=== PATIENT | male | born 1970 | race African-American/Black ===

== ENCOUNTER 2018-11-08 01:52 | Inpatient (IN) | payer MEDICAID, OTHER ==
[~2018-11-08] VITALS: Ht 190.5 cm; Wt 86.6 kg
[2018-11-08] MEDS ORDERED: HYDROCODONE/ACETAMINOPHEN 5/325MG TABLET PO STA (02:49)
[2018-11-08 03:06] LABS: BASOPHILS % 0.7 % (0.0-2.0); HEMATOCRIT. 43.7 % (42.0-52.0); HEMOGLOBIN. 14.9 g/dL (14.0-18.0); LYMPHOCYTES % 22.5 % (20.0-50.0); MEAN CORPUSCULAR HEMOGLOBIN 34.4 pg (28.0-32.0); MEAN CORPUSCULAR VOLUME 100.7 fL (80.0-94.0); MEAN PLATELET VOLUME 8.1 fl (7.4-10.4); MONOCYTES % 11.6 % (2.0-8.0); NEUTROPHILS % 63.2 % (40.0-76.0); PLATELET 152 x1000/uL (130-400); RED BLOOD CELL COUNT 4.34 mill/uL (4.7-6.1); RED CELL DISTRIBUTION WIDTH 12.7 % (11.6-14.6)
[2018-11-08 03:12] LABS: CHLORIDE 108 mEq/L (98-107)
[2018-11-08] MEDS ORDERED: ENOXAPARIN 80MG/0.8ML SYR SUBCUT ONE (03:45)
[2018-11-08 08:30] VITALS: BP 107/63
[2018-11-08] MEDS ORDERED: ACETAMINOPHEN 650MG/20.3ML UDC GT PRN (08:30)
[2018-11-08] MEDS ORDERED: HYDROCODONE/ACETAMINOPHEN 5/325MG TABLET PO PRN (08:30)
[2018-11-08] MEDS ORDERED: ACETAMINOPHEN 650MG SUPP PR PRN (08:30)
[2018-11-08] MEDS ORDERED: IPRATROPIUM/ALBUTEROL 0.5-3(2.5)MG/3ML NEB INH PRN (08:30)
[2018-11-08] MEDS ORDERED: ACETAMINOPHEN 325MG TABLET PO PRN (08:30)
[2018-11-08] MEDS ORDERED: DIPHENHYDRAMINE 50MG/ML VIAL IV PRN (08:30)
[2018-11-08] MEDS ORDERED: MAGNESIUM/ALUMINUM HYDROXIDE/SIMETHICONE 30ML UDC PO PRN (08:30)
[2018-11-08] MEDS ORDERED: CLONIDINE 0.1MG TABLET PO PRN (08:30)
[2018-11-08] MEDS ORDERED: NA PHOS,M-B/NA PHOS,DI-BA ENEMA 118ML PR PRN (08:30)
[2018-11-08] MEDS ORDERED: ONDANSETRON HCL 4MG/2ML INJ IV PRN (08:30)
[2018-11-08 09:00] VITALS: BP 107/63
[2018-11-08 12:00] VITALS: BP 106/54
[2018-11-08] MEDS ORDERED: MORPHINE SULFATE 4 MG/ML CPJ (NOT FOR IM USE) IV PRN (12:00)
[2018-11-08] MEDS: SODIUM CHLORIDE 0.9% INJ 3ML FLUSH IVF SCH ×2 (14:00→21:48)
[2018-11-08 16:29] VITALS: BP 106/68
[2018-11-08 16:36] LABS: BG CARBOXYHEMOGLOBIN 1.4 % (0.5-1.5); BG DEOXYHEMOGLOBIN 3.2 % (0.0-5.0); BG FRACTION INSPIRED OXYGEN 21; BG METHEMOGLOBIN 0.4 % (0.0-1.5); BG OXYGEN SATURATION 96.7 % (92.0-98.5); BG PCO2 43.3 mmHg (35.0-45.0); BG PH 7.412 (7.350-7.450); BG PO2 87.5 mmHg (75.0-100.0); BG SAMPLE SITE RIGHT BRACHIAL; BG VENT MODE ROOM AIR
[2018-11-08 18:24] LABS: CREATINE KINASE 270 IU/L (39-308)
[2018-11-08] MEDS: RIVAROXABAN 15 MG TABLET PO SCH (18:26)
[2018-11-08 18:27] LABS: CREATINE KINASE MB FRACTION 1.3 ng/mL (0.5-3.6)
[2018-11-08 18:31] LABS: CLARITY URINE CLEAR (CLEAR); COLOR URINE YELLOW (YELLOW); KETONES URINE TRACE (NEGATIVE); LEUKOCYTE ESTERASE URINE NEGATIVE (NEGATIVE); NITRITE URINE NEGATIVE (NEGATIVE); OCCULT BLOOD URINE NEGATIVE (NEGATIVE); PH URINE 6.5 (4.5-8.0); PROTEIN URINE NEGATIVE (NEGATIVE); SPECIFIC GRAVITY URINE 1.017 (1.005-1.030)
[2018-11-08 18:41] LABS: HEPATITIS B SURFACE ANTIGEN NEGATIVE
[2018-11-08 18:55] LABS: *AMPHETAMINES SCREEN URINE NEGATIVE (NEGATIVE); *BARBITURATES SCREEN URINE NEGATIVE (NEGATIVE); *BENZODIAZEPINES SCREEN URINE NEGATIVE (NEGATIVE); *COCAINE SCREEN URINE PRESUMTIVE POSITIVE (NEGATIVE); METHADONE URINE SCREEN NEGATIVE (NEGATIVE); OPIATES URINE SCREEN PRESUMTIVE POSITIVE (NEGATIVE)
[2018-11-08 18:56] LABS: CANNABINOID URINE SCREEN PRESUMTIVE POSITIVE (NEGATIVE); PHENCYCLIDINE URINE SCREEN NEGATIVE (NEGATIVE)
[2018-11-08 19:11] LABS: HEPATITIS A AB IGM NEGATIVE (NEGATIVE)
[2018-11-08 20:00] VITALS: BP 107/60
[2018-11-08] MEDS: IPRATROPIUM/ALBUTEROL 0.5-3(2.5)MG/3ML NEB HHN SCH (21:15)
[2018-11-09] VITALS: BP 110/60
[2018-11-09] MEDS: IPRATROPIUM/ALBUTEROL 0.5-3(2.5)MG/3ML NEB HHN SCH ×5 (00:37→14:54)
[2018-11-09 02:15] LABS: CREATINE KINASE 237 IU/L (39-308)
[2018-11-09 02:16] LABS: CREATINE KINASE MB FRACTION 1.2 ng/mL (0.5-3.6)
[2018-11-09 04:00] VITALS: BP 125/76
[2018-11-09 08:00] VITALS: BP 116/68
[2018-11-09] MEDS ORDERED: IOHEXOL-350 100 ML BOTTLE ONE (09:16)
[2018-11-09 10:13] LABS: BASOPHILS % 0.4 % (0.0-2.0); EOSINOPHILS % 2.1 % (0.0-5.0); HEMATOCRIT. 44.4 % (42.0-52.0); LYMPHOCYTES % 13.7 % (20.0-50.0); MEAN CORPUSCULAR HEMOGLOBIN 34.3 pg (28.0-32.0); MEAN CORPUSCULAR VOLUME 101.5 fL (80.0-94.0); MEAN PLATELET VOLUME 8.4 fl (7.4-10.4); MONOCYTES % 9.1 % (2.0-8.0); NEUTROPHILS % 74.7 % (40.0-76.0); PLATELET 163 x1000/uL (130-400); RED BLOOD CELL COUNT 4.38 mill/uL (4.7-6.1); RED CELL DISTRIBUTION WIDTH 12.7 % (11.6-14.6)
[2018-11-09 10:26] LABS: CHLORIDE 106 mEq/L (98-107)
[2018-11-09 10:33] LABS: LDL CHOLESTEROL 75 mg/dL (5-100)
[2018-11-09 10:35] LABS: HDL CHOLESTEROL 69 mg/dL (40-59)
[2018-11-09] MEDS: RIVAROXABAN 15 MG TABLET PO SCH (10:39)
[2018-11-09 12:00] VITALS: BP 119/70
[2018-11-09] MEDS ORDERED: RIVA20TA PO (13:53)
[2018-11-09] MEDS ORDERED: XAR15 PO (13:53)
[2018-11-09] MEDS ORDERED: AZIT500T2 MT (13:54)
[2018-11-09] MEDS: SODIUM CHLORIDE 0.9% INJ 3ML FLUSH IVF SCH ×2 (13:57→14:00)
[2018-11-09] MEDS ORDERED: GUAIFENESIN/CODEINE 200-20MG/10ML UDC PO SCH (14:00)
[2018-11-09] MEDS ORDERED: AZITHROMYCIN 500 MG in DEXT 5% WATER 250 ML IV SCH (14:00)
[2018-11-09 16:08] VITALS: BP 119/70
[2018-11-29] MEDS ORDERED: RIVAROXABAN 20 MG TABLET PO SCH (17:00)
== END 2018-11-09 16:45 | disposition home or self-care (01) | DRG 139 ==
LOC: ER 01:52 → 5WST 05:19 → EDBEDREQ 05:21 → EDBEDREQTM 05:21 → ENRESERV 06:46
PROVIDERS: ADMIT Family Medicine; ATTEND Family Medicine
DX: J18.9 Pneumonia, unspecified organism (principal); I82.412 Acute embolism and thrombosis of left femoral vein; J44.0 Chronic obstructive pulmonary disease with (acute) lower respiratory infection; R16.0 Hepatomegaly, not elsewhere classified; J44.1 Chronic obstructive pulmonary disease with (acute) exacerbation; I82.432 Acute embolism and thrombosis of left popliteal vein; F17.210 Nicotine dependence, cigarettes, uncomplicated; F12.90 Cannabis use, unspecified, uncomplicated; R10.9 Unspecified abdominal pain; E80.6 Other disorders of bilirubin metabolism; M19.90 Unspecified osteoarthritis, unspecified site; Z86.718 Personal history of other venous thrombosis and embolism; Z82.49 Family history of ischemic heart disease and other diseases of the circulatory system
CPT/HCPCS: 36415; 36600; 71045; 71275; 74177; 76705; 80061; 80305; 82375; 82550; 82553; 82805; 84484; 86705; 86709; 86803; 87340; 93005; 93971; 94640; 96372; 96374; 99285; J0456; J1650; J2405; J7050; J7060; J7620; Q9967

== ENCOUNTER 2018-11-11 00:41 | Emergency (ER) | payer MEDICAID ==
[~2018-11-11 00:41] MED LIST: AZIT500T2 MT; RIVA20TA PO; XAR15 PO
[2018-12-02] MEDS ORDERED: AZIT500T2 MT (12:25)
[2018-12-02] MEDS ORDERED: XAR15 MT (12:25)
== END 2018-11-11 00:57 | disposition left against medical advice (07) ==
LOC: ER 00:41
DX: Z53.21 Procedure and treatment not carried out due to patient leaving prior to being seen by health care provider (principal)

== ENCOUNTER 2018-11-17 22:26 | Emergency (ER) | payer MEDICAID ==
[~2018-11-17] VITALS: Ht 193 cm; Wt 86.0 kg
[2018-11-18] MEDS ORDERED: LIDOCAINE HCL 1% 20ML VIAL (Pyxis) INJ INFIL ONE (06:45)
[2018-11-18 08:00] VITALS: BP 149/79
[2018-12-02] MEDS ORDERED: AZIT500T2 MT (12:25)
[2018-12-02] MEDS ORDERED: XAR15 MT (12:25)
== END 2018-11-18 08:57 | disposition home or self-care (01) ==
LOC: ER 22:26
DX: K64.4 Residual hemorrhoidal skin tags (principal); S63.616A Unspecified sprain of right little finger, initial encounter; Z86.718 Personal history of other venous thrombosis and embolism; Z79.01 Long term (current) use of anticoagulants; F17.200 Nicotine dependence, unspecified, uncomplicated; Z98.890 Other specified postprocedural states; X58.XXXA Exposure to other specified factors, initial encounter; Y93.67 Activity, basketball; Y92.89 Other specified places as the place of occurrence of the external cause
CPT/HCPCS: 26770; 73130; 99284; J3490

== ENCOUNTER 2018-12-01 01:06 | Inpatient (IN) | payer MEDICAID ==
[~2018-12-01] VITALS: Ht 193 cm; Wt 78.5 kg
[2018-12-01 05:29] LABS: CHLORIDE 107 mEq/L (98-107)
[2018-12-01] MEDS ORDERED: ENOXAPARIN 80MG/0.8ML SYR SUBCUT ONE (05:45)
[2018-12-01 06:08] LABS: BASOPHILS % 0.7 % (0.0-2.0); EOSINOPHILS % 0.7 % (0.0-5.0); HEMATOCRIT. 39.4 % (42.0-52.0); HEMOGLOBIN. 13.5 g/dL (14.0-18.0); LYMPHOCYTES % 28.3 % (20.0-50.0); MEAN CORPUSCULAR HEMOGLOBIN 34.1 pg (28.0-32.0); MEAN CORPUSCULAR VOLUME 99.3 fL (80.0-94.0); MEAN PLATELET VOLUME 7.8 fl (7.4-10.4); MONOCYTES % 12.2 % (2.0-8.0); NEUTROPHILS % 58.1 % (40.0-76.0); PLATELET 196 x1000/uL (130-400); RED BLOOD CELL COUNT 3.97 mill/uL (4.7-6.1); RED CELL DISTRIBUTION WIDTH 12.3 % (11.6-14.6)
[2018-12-01] MEDS ORDERED: ACETAMINOPHEN 650MG/20.3ML UDC GT PRN (12:00)
[2018-12-01] MEDS ORDERED: IPRATROPIUM/ALBUTEROL 0.5-3(2.5)MG/3ML NEB INH PRN (12:00)
[2018-12-01] MEDS ORDERED: ONDANSETRON HCL 4MG/2ML INJ IV PRN (12:00)
[2018-12-01] MEDS ORDERED: ACETAMINOPHEN 650MG SUPP PR PRN (12:00)
[2018-12-01] MEDS ORDERED: ACETAMINOPHEN 325MG TABLET PO PRN (12:00)
[2018-12-01] MEDS: SODIUM CHLORIDE 0.9% INJ 3ML FLUSH IVF SCH ×2 (14:05→21:29)
[2018-12-01 16:25] VITALS: BP 132/83
[2018-12-01 16:26] VITALS: BP 132/83
[2018-12-01] MEDS ORDERED: DIPHENOXYLATE/ATROPINE 2.5/0.025MG TABLET PO PRN (17:15)
[2018-12-01] MEDS: RIVAROXABAN 15 MG TABLET PO SCH (18:06)
[2018-12-01] MEDS: HYDROCODONE/ACETAMINOPHEN 5/325MG TABLET PO PRN ×2 (18:07→22:16)
[2018-12-01] MEDS: SODIUM CHLORIDE 0.9% 1,000 ML IV SCH (18:07)
[2018-12-01 20:07] VITALS: BP 119/77
[2018-12-01] MEDS: ALBUTEROL (0.083%) 2.5MG/3ML NEB HHN SCH (21:10)
[2018-12-02] VITALS: BP 117/65
[2018-12-02] MEDS: ALBUTEROL (0.083%) 2.5MG/3ML NEB HHN SCH ×3 (01:55→14:00)
[2018-12-02 04:00] VITALS: BP 118/72
[2018-12-02] MEDS: SODIUM CHLORIDE 0.9% INJ 3ML FLUSH IVF SCH (05:13)
[2018-12-02] MEDS: SODIUM CHLORIDE 0.9% 1,000 ML IV SCH (06:35)
[2018-12-02 08:00] VITALS: BP 126/75
[2018-12-02 08:06] LABS: BASOPHILS % 1.5 % (0.0-2.0); EOSINOPHILS % 2.6 % (0.0-5.0); HEMATOCRIT. 41.6 % (42.0-52.0); HEMOGLOBIN. 14.1 g/dL (14.0-18.0); LYMPHOCYTES % 47.4 % (20.0-50.0); MEAN CORPUSCULAR HEMOGLOBIN 34.1 pg (28.0-32.0); MEAN CORPUSCULAR VOLUME 100.4 fL (80.0-94.0); MEAN PLATELET VOLUME 7.5 fl (7.4-10.4); MONOCYTES % 13.2 % (2.0-8.0); NEUTROPHILS % 35.3 % (40.0-76.0); PLATELET 195 x1000/uL (130-400); RED BLOOD CELL COUNT 4.14 mill/uL (4.7-6.1); RED CELL DISTRIBUTION WIDTH 12.3 % (11.6-14.6)
[2018-12-02 08:24] LABS: CHLORIDE 107 mEq/L (98-107)
[2018-12-02 08:32] LABS: LDL CHOLESTEROL 94 mg/dL (5-100)
[2018-12-02 08:34] LABS: HDL CHOLESTEROL 48 mg/dL (40-59)
[2018-12-02] MEDS: RIVAROXABAN 15 MG TABLET PO SCH (09:45)
[2018-12-02] MEDS: HYDROCODONE/ACETAMINOPHEN 5/325MG TABLET PO PRN (09:46)
[2018-12-02 12:00] VITALS: BP 110/74
[2018-12-02] MEDS ORDERED: AZIT500T2 MT (12:25)
[2018-12-02] MEDS ORDERED: XAR15 MT (12:25)
[2018-12-02 13:12] VITALS: BP 110/74
== END 2018-12-02 14:55 | disposition home or self-care (01) | DRG 197 ==
LOC: ER 01:06 → 6WST 05:14 → EDBEDREQTM 05:34 → EDBEDREQ 05:34 → ENRESERV 15:21
PROVIDERS: ADMIT Family Medicine; ATTEND Family Medicine
DX: I82.409 Acute embolism and thrombosis of unspecified deep veins of unspecified lower extremity (principal); E44.0 Moderate protein-calorie malnutrition; E86.0 Dehydration; F14.90 Cocaine use, unspecified, uncomplicated; Z86.718 Personal history of other venous thrombosis and embolism; Z68.21 Body mass index [BMI] 21.0-21.9, adult
CPT/HCPCS: 36415; 71045; 80061; 83880; 84484; 87804; 93005; 93971; 94640; 96372; 99285; J1650; J7030; J7611; J7620

== ENCOUNTER 2019-01-11 21:40 | Emergency (ER) | payer MEDICAID ==
[~2019-01-11] VITALS: Ht 190.5 cm; Wt 84.0 kg
[~2019-01-11 21:40] MED LIST changes: -RIVA20TA PO; +XAR15 MT; -XAR15 PO
[2019-01-12] MEDS ORDERED: SODIUM CHLORIDE 0.9% 1,000 ML IV ONE (02:00)
[2019-01-12 02:24] LABS: BASOPHILS % 1.2 % (0.0-2.0); EOSINOPHILS % 5.4 % (0.0-5.0); HEMATOCRIT. 40.3 % (42.0-52.0); HEMOGLOBIN. 13.4 g/dL (14.0-18.0); LYMPHOCYTES % 30.8 % (20.0-50.0); MEAN CORPUSCULAR HEMOGLOBIN 34.2 pg (28.0-32.0); MEAN CORPUSCULAR VOLUME 102.7 fL (80.0-94.0); MEAN PLATELET VOLUME 7.4 fl (7.4-10.4); MONOCYTES % 9.2 % (2.0-8.0); NEUTROPHILS % 53.4 % (40.0-76.0); PLATELET 195 x1000/uL (130-400); RED BLOOD CELL COUNT 3.92 mill/uL (4.7-6.1); RED CELL DISTRIBUTION WIDTH 13.6 % (11.6-14.6)
[2019-01-12 02:26] LABS: CHLORIDE 107 mEq/L (98-107)
[2019-01-12 02:27] LABS: PROTHROMBIN TIME 10.2 sec (9.1-11.1)
[2019-01-12] MEDS ORDERED: IOHEXOL-350 100 ML BOTTLE ONE (04:02)
[2019-01-12] MEDS ORDERED: ENOXAPARIN 80MG/0.8ML SYR SUBCUT ONE (04:45)
[2019-01-12 04:46] LABS: CLARITY URINE CLEAR (CLEAR); COLOR URINE YELLOW (YELLOW); KETONES URINE NEGATIVE (NEGATIVE); LEUKOCYTE ESTERASE URINE NEGATIVE (NEGATIVE); NITRITE URINE NEGATIVE (NEGATIVE); OCCULT BLOOD URINE TRACE (NEGATIVE); PH URINE 6.5 (4.5-8.0); PROTEIN URINE NEGATIVE (NEGATIVE); SPECIFIC GRAVITY URINE 1.016 (1.005-1.030)
[2019-01-12 09:41] VITALS: BP 138/94
== END 2019-01-12 10:06 | disposition home or self-care (01) ==
LOC: ER 21:40 → EDBEDREQ 01-12 04:57 → EDBEDREQTM 01-12 04:57 → ER 01-12 10:06 → CANBEDREQ 01-12 11:23
DX: I82.492 Acute embolism and thrombosis of other specified deep vein of left lower extremity (principal); R06.09 Other forms of dyspnea; I10 Essential (primary) hypertension; F17.200 Nicotine dependence, unspecified, uncomplicated; Z98.890 Other specified postprocedural states
CPT/HCPCS: 36415; 71045; 71275; 80053; 81003; 83880; 84484; 85025; 85610; 93005; 93971; 96360; 96361; 96372; 99284; J1650; J7030; Q9967

== ENCOUNTER 2019-01-15 09:53 | Emergency (ER) | payer MEDICAID ==
[~2019-01-15] VITALS: Ht 190.5 cm; Wt 81.0 kg
[2019-01-15 13:31] VITALS: BP 144/93
[2019-01-16] MEDS ORDERED: CLONIDINE 0.1MG TABLET PO PRN (10:00)
[2019-01-16] MEDS ORDERED: MAGNESIUM/ALUMINUM HYDROXIDE/SIMETHICONE 30ML UDC PO PRN (10:00)
[2019-01-16] MEDS ORDERED: GUAIFENESIN 200MG/10ML SUGAR FREE UDC PO PRN (10:00)
[2019-01-16] MEDS ORDERED: ONDANSETRON HCL 4MG/2ML INJ IV PRN (10:00)
[2019-01-16] MEDS ORDERED: ACETAMINOPHEN 325MG TABLET PO PRN (10:00)
[2019-01-16] MEDS ORDERED: HYDROCODONE/ACETAMINOPHEN 10/325MG TABLET PO PRN (10:00)
[2019-01-16] MEDS ORDERED: NA PHOS,M-B/NA PHOS,DI-BA ENEMA 118ML PR PRN (10:00)
[2019-01-16] MEDS ORDERED: DIPHENHYDRAMINE 50MG/ML VIAL IV PRN (10:00)
[2019-01-16] MEDS ORDERED: MORPHINE SULFATE 2 MG/ML CPJ (NOT FOR IM USE) IV PRN (10:00)
[2019-01-16] MEDS ORDERED: DOCUSATE SODIUM 100MG CAPSULE PO PRN (10:00)
[2019-01-16] MEDS ORDERED: LORAZEPAM 2MG/ML CPJ IV PRN (10:00)
== END 2019-01-15 13:20 | disposition home or self-care (01) ==
LOC: ER 10:35
DX: M79.669 Pain in unspecified lower leg (principal); I10 Essential (primary) hypertension; Z86.718 Personal history of other venous thrombosis and embolism; Z98.890 Other specified postprocedural states
CPT/HCPCS: 99283

== ENCOUNTER 2019-01-29 02:07 | Emergency (ER) | payer MEDICAID ==
[~2019-01-29] VITALS: Ht 182.9 cm; Wt 77.0 kg
[2019-01-29] MEDS ORDERED: HYDROCODONE/ACETAMINOPHEN 5/325MG TABLET PO STA ×2 (06:40→11:01)
[2019-01-29 13:12] VITALS: BP 128/79
== END 2019-01-29 13:14 | disposition home or self-care (01) ==
LOC: ER 02:26
DX: M79.672 Pain in left foot (principal); I10 Essential (primary) hypertension; Z88.1 Allergy status to other antibiotic agents
CPT/HCPCS: 99283

== ENCOUNTER 2019-03-30 11:10 | Emergency (ER) | payer MEDICAID ==
[~2019-03-30] VITALS: Ht 190.5 cm; Wt 89.5 kg
[2019-03-30 11:27] VITALS: BP 128/85
== END 2019-03-30 13:25 | disposition left against medical advice (07) ==
LOC: ER 11:28
DX: M79.605 Pain in left leg (principal); Z53.21 Procedure and treatment not carried out due to patient leaving prior to being seen by health care provider

== ENCOUNTER 2019-04-11 01:58 | Emergency (ER) | payer MEDICAID ==
[~2019-04-11] VITALS: Ht 190.5 cm; Wt 89.0 kg
[2019-04-11] MEDS ORDERED: ACETAMINOPHEN 325MG TABLET PO ONE (02:45)
[2019-04-11 06:14] VITALS: BP 119/67
== END 2019-04-11 08:04 | disposition home or self-care (01) ==
LOC: ER 02:25
DX: M79.662 Pain in left lower leg (principal); F17.200 Nicotine dependence, unspecified, uncomplicated
CPT/HCPCS: 99283

== ENCOUNTER 2019-05-08 16:32 | Emergency (ER) | payer MEDICAID ==
[~2019-05-08] VITALS: Ht 190.5 cm; Wt 89.0 kg
[2019-05-08] MEDS ORDERED: ENOXAPARIN 100MG/ML SYR SUBCUT ONE (17:30)
[2019-05-08 17:31] VITALS: BP 121/83
[2019-05-08] MEDS ORDERED: ACETAMINOPHEN 325MG TABLET PO ONE (17:45)
== END 2019-05-08 18:00 | disposition home or self-care (01) ==
LOC: ER 16:32
DX: I82.5Z2 Chronic embolism and thrombosis of unspecified deep veins of left distal lower extremity (principal); I10 Essential (primary) hypertension; F17.210 Nicotine dependence, cigarettes, uncomplicated
CPT/HCPCS: 96372; 99283; J1650

== ENCOUNTER 2019-05-17 22:45 | Emergency (ER) | payer MEDICAID ==
[~2019-05-17] VITALS: Ht 190.5 cm; Wt 118.0 kg
[2019-05-18] MEDS ORDERED: HYDROCODONE/ACETAMINOPHEN 5/325MG TABLET PO STA (06:38)
[2019-05-18] MEDS ORDERED: IPRATROPIUM BROMIDE (0.02%) 0.5MG/2.5ML NEB HHN STA (06:38)
[2019-05-18] MEDS ORDERED: ALBUTEROL (0.083%) 2.5MG/3ML NEB HHN STA (06:38)
[2019-05-18 09:12] LABS: BASOPHILS % 0.9 % (0.0-2.0); EOSINOPHILS % 4.5 % (0.0-5.0); HEMATOCRIT. 42.2 % (42.0-52.0); HEMOGLOBIN. 14.4 g/dL (14.0-18.0); LYMPHOCYTES % 20.5 % (20.0-50.0); MEAN CORPUSCULAR HEMOGLOBIN 34.6 pg (28.0-32.0); MEAN CORPUSCULAR VOLUME 101.4 fL (80.0-94.0); MEAN PLATELET VOLUME 7.7 fl (7.4-10.4); MONOCYTES % 11.4 % (2.0-8.0); NEUTROPHILS % 62.7 % (40.0-76.0); PLATELET 193 x1000/uL (130-400); RED BLOOD CELL COUNT 4.16 mill/uL (4.7-6.1); RED CELL DISTRIBUTION WIDTH 12.8 % (11.6-14.6)
[2019-05-18 09:16] LABS: CHLORIDE 109 mEq/L (98-107)
[2019-05-18 09:17] LABS: PARTIAL THROMBOPLASTIN TIME 26.2 sec (23.4-31.0); PROTHROMBIN TIME 10.2 sec (9.6-11.0)
[2019-05-18 10:45] VITALS: BP 125/75
== END 2019-05-18 10:50 | disposition home or self-care (01) ==
LOC: ER 22:45
DX: R60.0 Localized edema (principal); M25.512 Pain in left shoulder; R06.02 Shortness of breath; Z86.718 Personal history of other venous thrombosis and embolism; Z79.899 Other long term (current) drug therapy; Z98.890 Other specified postprocedural states
CPT/HCPCS: 36415; 73030; 80053; 85025; 85610; 85730; 93970; 94640; 99284; J7611